=== PATIENT | male | born 1995 | race African-American/Black ===

== ENCOUNTER 2017-06-24 23:33 | Emergency (ER) | payer OTHER ==
--- NOTE | 2017-06-25 00:15 | ED Physician Documentation ---
PD HPI HEAD INJURY - Stated complaint Stated Complaint: L EAR LAC - Chief complaint Chief Complaint: Laceration - History obtained from History obtained from: Patient - History of Present Illness Mechanism of head injury: Laceration Where head injury occurred: Work Timing - onset: Today Location of injury: Left, Other (ear) Associated symptoms: No: LOC, AMS Symptoms worsen with: Palpation Similar symptoms before: Has not had sx before Recently seen: Not recently seen - Additional information Additional information: Patient is a 21 year old male with no significant past medical history who is presenting to the emergency department for ear laceration. Patient was at a trash can and someone opened a lid, cutting his left posterior ear. Patient is up to date on his tetanus and denies any other trauma. Review of Systems Constitutional: denies: Fever Eyes: denies: Loss of vision Ears: reports: Ear pain Nose: reports: Reviewed and negative Throat: reports: Reviewed and negative Cardiac: reports: Reviewed and negative Respiratory: reports: Reviewed and negative GI: denies: Nausea, Vomiting : reports: Reviewed and negative Skin: reports: Abrasion (s), Laceration (s) Neurologic: reports: Head injury. denies: Headache, LOC Immunocompromised: denies: Immunocompromised PD PAST MEDICAL HISTORY - Past Medical History Past Medical History: No - Past Surgical History Past Surgical History: No - Present Medications Home Medications: Ambulatory Orders Medication Instructions Recorded Confirmed No Known Home Medications [No 06/24/17 06/24/17 Known Home Medications] - Allergies Allergies/Adverse Reactions: Allergies Allergy/AdvReac Type Severity Reaction Status Date / Time No Known Drug Allergies Allergy Verified 06/24/17 23:41 - Social History Does the pt smoke?: Yes Smoking Status: Current every day smoker Does the pt drink ETOH?: Yes ETOH Use: Beer, Liquor Does the pt have substance abuse?: No - Immunizations Immunizations are current?: Yes PD ED PE NORMAL - Vitals Vital signs reviewed: Yes - General General: Alert and oriented X 3, No acute distress, Well developed/nourished - Cardiac Cardiac: RRR - Respiratory Respiratory: No respiratory distress - Abdomen Abdomen: Non distended - Extremities Extremities: No deformity - Neuro Neuro: Alert and oriented X 3, No motor deficit, Normal speech Eye Opening: Spontaneous Motor: Obeys Commands Verbal: Oriented GCS Score: 15 PD ED PE EXPANDED - HEENT HEENT: Head injury (2cm laceration/skin flap of left posterior ear) - Derm Derm: Laceration(s) (left posterior ear laceration) Results - Vitals Vitals: Vital Signs - 24 hr 06/24/17 06/25/17 06/25/17 23:35 00:25 00:26 Temperature 36.5 C Heart Rate 82 65 65 Respiratory 14 18 15 Rate Blood Pressure 156/102 H 148/86 H 148/86 H O2 Saturation 96 100 100 Oxygen O2 Source Room air Procedures - Laceration (location) left ear Length in cm: 2 Wound type: Flap Neurovascular status: Sensory intact, Vascular intact Wound Preparation: Chlorhexadine Skin layer closure: Steri strips Other: Patient tolerated well, No complications, Neurovascular intact, Tetanus UTD Complexity: Simple PD MEDICAL DECISION MAKING - ED course Complexity details: reviewed results, re-evaluated patient, considered differential, d/w patient ED course: Patient was seen and examined at bedside. Patient's laceration was repaired as described above. patient required no further work up and was stable for discharge with outpatient follow up. Departure - Departure Disposition: 01 Home, Self Care Clinical Impression: Laceration Condition: Good Instructions: ED Laceration Facial Sutr Tape Follow-Up: Barbara Calvo MD [Primary Care Provider] - As Needed Comments: Your laceration was repaired with steri-strips. They should stay on for about a week or so. If one falls off in the next couple of days you should replace it with a new one. You should keep the area clean and dry. You should avoid scrubbing the area. Monitor for signs of infection (increased redness, swelling or discharge) and follow up with your doctor for any of those. You may return to the emergency department at any time for new, worsening or uncontrollable symptoms. Forms: Activity restrictions
[2017-06-25 00:26] VITALS: BP 148/86
== END 2017-06-25 00:26 | disposition home or self-care (01) ==
LOC: ED 23:33
DX: S01.312A Laceration without foreign body of left ear, initial encounter (principal); W26.8XXA Contact with other sharp object(s), not elsewhere classified, initial encounter; Y99.0 Civilian activity done for income or pay; F17.200 Nicotine dependence, unspecified, uncomplicated
CPT/HCPCS: 99283

== ENCOUNTER 2018-01-16 12:30 | Emergency (ER) | payer OTHER ==
[2018-01-16 12:42] VITALS: BP 142/94
[2018-01-16] MEDS ORDERED: BACITRACIN OINT TOP ONE (13:03)
--- NOTE | 2018-01-16 13:14 | ED Physician Documentation ---
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 This occurred at approximately 730 to 8 PM last night. Tetanus is up-to-date. He is right- handed. He cut his left middle finger. Came in today for evaluation. It is not bleeding. Review of Systems GI: denies: Abdominal Pain, Vomiting Skin: denies: Rash Musculoskeletal: denies: Neck pain, Back pain Neurologic: denies: Focal weakness, Numbness, Headache PD PAST MEDICAL HISTORY - Past Medical History Past Medical History: No - Past Surgical History Past Surgical History: No - Present Medications Home Medications: Ambulatory Orders Medication Instructions Recorded Confirmed No Known Home Medications [No 06/24/17 06/24/17 Known Home Medications] - Allergies Allergies/Adverse Reactions: Allergies Allergy/AdvReac Type Severity Reaction Status Date / Time No Known Drug Allergies Allergy Verified 01/16/18 12:42 - Social History Does the pt smoke?: Yes Smoking Status: Current every day smoker Does the pt drink ETOH?: Yes Does the pt have substance abuse?: No - Immunizations Immunizations are current?: Yes PD ED PE NORMAL - Vitals Vital signs reviewed: Yes - General General: Alert and oriented X 3, No acute distress - HEENT HEENT: Moist mucous membranes - Derm Derm: Warm and dry - Extremities Extremities: Other (L 3rd digit - 1cm curved laceration to the dorsum of the mid phalanx. flap. NVI. no tendon injury. ) - Neuro Neuro: Alert and oriented X 3 Results - Vitals Vitals: Vital Signs - 24 hr 01/16/18 12:40 Temperature 36.4 C L Heart Rate 89 Respiratory 20 Rate Blood Pressure 142/94 H O2 Saturation 95 Oxygen O2 Source Room air PD MEDICAL DECISION MAKING - ED course Complexity details: considered differential, d/w patient, d/w family ED course: Patient is a 22-year-old male who presents to the emergency department with a flap laceration to the dorsal aspect of the mid phalanx of the left third digit. This is been approximately 16 hours since injury, therefore it was irrigated carefully bandaged and bacitracin applied. Placed in a finger splint. We will have him follow-up with his doctor for further care. Will allow this to heal by secondary intention. No tendon injury. Neurovascularly intact. Flexion was tested against resistance as well. Tetanus is up-to-date. Patient counseled regarding signs and symptoms for which I believe and urgent re-evaluation would be necessary. Patient with good understanding of and agreement to plan and is comfortable going home at this time This document was made in part using voice recognition software. While efforts are made to proofread this document, sound alike and grammatical errors may occur. - Sepsis Event Vital Signs: Vital Signs - 24 hr 01/16/18 12:40 Temperature 36.4 C L Heart Rate 89 Respiratory 20 Rate Blood Pressure 142/94 H O2 Saturation 95 Oxygen O2 Source Room air Departure - Departure Disposition: 01 Home, Self Care Clinical Impression: Finger laceration Qualifiers: Encounter type: initial encounter Finger: middle finger Damage to nail status: without damage Foreign body presence: without foreign body Laterality: left Qualified Code(s): S61.213A - Laceration without foreign body of left middle finger without damage to nail, initial encounter Condition: Good Instructions: ED Laceration Hand Follow-Up: Barbara Calvo MD [Primary Care Provider] - Within 3 Days (for wound check) Comments: Keep the splint on for the next week. You can change the dressing and apply antibiotic ointment twice daily. Return if you worsen
== END 2018-01-16 13:30 | disposition home or self-care (01) ==
LOC: ED 12:30
DX: S61.213A Laceration without foreign body of left middle finger without damage to nail, initial encounter (principal); W45.8XXA Other foreign body or object entering through skin, initial encounter; Y93.G2 Activity, grilling and smoking food; F17.200 Nicotine dependence, unspecified, uncomplicated
CPT/HCPCS: 99282; 99283; A9270

== ENCOUNTER 2018-02-20 14:46 | Emergency (ER) | payer OTHER ==
[2018-02-20 15:02] VITALS: BP 140/93
--- NOTE | 2018-02-20 15:32 | ED Physician Documentation ---
History of Present Illness - Stated complaint Stated Complaint: WEAKNESS/SHAKY - Chief complaint Chief Complaint: General - History obtained from History obtained from: Patient - History of Present Illness Timing: Other (This is a previously healthy 22-year-old gentleman who is been doing the ketogenic diet for the last 3 weeks. He is lost about 6 pounds. He has had 2 episodes now where he feels weak and shaky. One was about a week ago he woke up in the middle the night feeling weak and shaky. He took some sugar containing sparkling water thinking his blood sugar might be low. The symptoms persisted that day and then went away. It recurred last night. He made his way down stairs and drank some orange juice and then vomited and briefly had a nosebleed. He still feels generally weak and shaky, he denies chest pain, trouble breathing, persistent nausea, abdominal pain or diarrhea.) - Additonal information Additional information: He did drink a fair amount last night, he does not recall if he drank the night of the previous symptoms. Review of Systems Constitutional: reports: Fatigue. denies: Fever, Chills Throat: denies: Dental pain / toothache, Sore throat Cardiac: denies: Chest pain / pressure, Palpitations Respiratory: denies: Dyspnea, Cough GI: denies: Abdominal Pain, Diarrhea PD PAST MEDICAL HISTORY - Past Medical History Past Medical History: No - Past Surgical History Past Surgical History: No - Present Medications Home Medications: Ambulatory Orders Medication Instructions Recorded Confirmed No Known Home Medications 06/24/17 06/24/17 - Allergies Allergies/Adverse Reactions: Allergies Allergy/AdvReac Type Severity Reaction Status Date / Time No Known Drug Allergies Allergy Verified 01/16/18 12:42 - Social History Does the pt smoke?: Yes Smoking Status: Current every day smoker Does the pt drink ETOH?: Yes Does the pt have substance abuse?: No - Immunizations Immunizations are current?: Yes PD ED PE NORMAL - Vitals Vital signs reviewed: Yes - General General: Alert and oriented X 3, No acute distress, Other (No tremor) - HEENT HEENT: PERRL, EOMI - Neck Neck: Supple, no meningeal sign, No bony TTP - Cardiac Cardiac: RRR, No murmur - Respiratory Respiratory: No respiratory distress, Clear bilaterally - Abdomen Abdomen: Normal bowel sounds, Soft, Non tender - Derm Derm: No rash - Neuro Neuro: Alert and oriented X 3, 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 Eye Opening: Spontaneous Motor: Obeys Commands Verbal: Oriented GCS Score: 15 - Psych Psych: Normal mood, Normal affect Results - Vitals Vitals: Vital Signs - 24 hr 02/20/18 14:58 Temperature 36.7 C Heart Rate 98 Respiratory 18 Rate Blood Pressure 140/93 H O2 Saturation 95 Oxygen O2 Source Room air - EKG (time done) 1507 Rate: Rate (enter#) (97) Rhythm: NSR [place]: Normal Intervals: Normal MT QRS: Normal Ischemia: Normal ST segments Computer interpretation: Agree with computer - Labs Labs: Laboratory Tests 02/20/18 02/20/18 02/20/18 15:01 15:40 15:40 WBC 5.8 RBC 4.53 L Hgb 14.8 Hct 43.2 MCV 95.4 H MCH 32.7 H MCHC 34.3 RDW 13.7 Plt Count 234 MPV 9.0 Neut # (Auto) 4.2 Lymph # (Auto) 1.0 L [place] # (Auto) 0.5 Eos # (Auto) 0.0 Baso # (Auto) 0.0 Absolute Nucleated RBC 0.01 Nucleated RBC % 0.1 Sodium 136 Potassium 4.5 Chloride 96 L Carbon Dioxide 25 Anion Gap 15.0 H BUN 19 Creatinine 1.0 Estimated GFR (MDRD) 111 Glucose 145 H POC Whole Bld Glucose 138 H Calcium 9.9 Total Bilirubin 0.8 AST 57 H ALT 67 H Alkaline Phosphatase 46 Total Protein 8.3 H Albumin 4.8 Globulin 3.5 Albumin/Globulin Ratio 1.4 Lipase 29 PD MEDICAL DECISION MAKING - ED course ED course: 22-year-old gentleman with nonspecific symptoms likely related to ketogenic diet. We will do some screening labs, but pretest probability is low. - Sepsis Event Vital Signs: Vital Signs - 24 hr 02/20/18 14:58 Temperature 36.7 C Heart Rate 98 Respiratory 18 Rate Blood Pressure 140/93 H O2 Saturation 95 Oxygen O2 Source Room air Departure - Departure Disposition: 01 Home, Self Care Clinical Impression: Dizziness, Shakiness, Ketogenic diet Condition: Good Record reviewed to determine appropriate education?: Yes Instructions: ED Dizziness [facility] Comments: Lab work demonstrates very mild elevation of your liver enzymes, decrease alcohol use. [place] Return for new or worsening symptoms.
[2018-02-20 16:04] LABS: BASOPHILS % (AUTO) 0.4 %; EOSINOPHILS % (AUTO) 0.6 %; HGB - HEMOGLOBIN 14.8 g/dL (14.0-18.0); LYMPHOCYTES % (AUTO) 17.5 %; MEAN CORPUSCULAR HEMOGLOBIN 32.7 pg (27.0-31.0); MEAN CORPUSCULAR HGB CONC 34.3 g/dL (32.0-36.0); MEAN CORPUSCULAR VOLUME 95.4 fL (80.0-94.0); MONOCYTES # (AUTO) 0.5 10^3/uL (0.0-1.0); MONOCYTES % (AUTO) 8.9 %; NEUTROPHILS # (AUTO) 4.2 10^3/uL (1.5-6.6); NEUTROPHILS % (AUTO) 72.6 %; PLT - PLATELET COUNT 234 10^3/uL (130-450); RED BLOOD COUNT 4.53 10^6/uL (4.70-6.10); RED CELL DISTRIBUTION WIDTH 13.7 % (12.0-15.0); WHITE BLOOD COUNT 5.8 x10^3/uL (4.8-10.8)
[2018-02-20 16:16] LABS: ALBUMIN 4.8 g/dL (3.2-5.5); ALBUMIN/GLOBULIN RATIO 1.4 (1.0-2.2); BILIRUBIN,TOTAL 0.8 mg/dL (0.2-1.0); CALCIUM 9.9 mg/dL (8.5-10.3); TOTAL PROTEIN 8.3 g/dL (6.7-8.2)
== END 2018-02-20 16:29 | disposition home or self-care (01) ==
LOC: ED 14:46
DX: R42 Dizziness and giddiness (principal); R25.8 Other abnormal involuntary movements; F17.200 Nicotine dependence, unspecified, uncomplicated
CPT/HCPCS: 36415; 80053; 83690; 85025; 93005; 99282; 99283

== ENCOUNTER 2018-10-02 15:13 | Emergency (ER) | payer OTHER ==
[2018-10-02 15:31] VITALS: BP 165/103
--- NOTE | 2018-10-02 15:55 | ED Physician Documentation ---
History of Present Illness - Stated complaint Stated Complaint: WEAKNESS - Chief complaint Chief Complaint: General - History obtained from History obtained from: Patient, Family - History of Present Illness Timing: Other (Otherwise healthy 23-year-old gentleman who presents with weakness and shakiness for the last few days. I saw him in January of last year for similar symptoms and seems like the inciting factors are the same. At that time he was on the keto diet and was drinking sometimes excessively at night. He is off the keto diet until about a week or 2 ago. The symptoms came up on . He feels just generally weak and like his muscles are sore all over. He did drink heavily the last 2 nights.) Review of Systems Constitutional: reports: Fatigue. denies: Fever, Chills Nose: denies: Rhinorrhea / runny nose, Congestion Cardiac: denies: Chest pain / pressure, Palpitations Respiratory: denies: Dyspnea, Cough GI: denies: Abdominal Pain, Nausea PD PAST MEDICAL HISTORY - Past Surgical History Past Surgical History: No - Present Medications Home Medications: Ambulatory Orders Medication Instructions Recorded Confirmed No Known Home Medications 06/24/17 06/24/17 - Allergies Allergies/Adverse Reactions: Allergies Allergy/AdvReac Type Severity Reaction Status Date / Time No Known Drug Allergies Allergy Verified 10/02/18 15:31 - Social History Does the pt smoke?: Yes Smoking Status: Current every day smoker Does the pt drink ETOH?: Yes Does the pt have substance abuse?: No - Immunizations Immunizations are current?: Yes PD ED PE NORMAL - Vitals Vital signs reviewed: Yes - General General: Alert and oriented X 3, No acute distress - HEENT HEENT: PERRL, EOMI, Pharynx benign - Neck Neck: Supple, no meningeal sign, No bony TTP - Cardiac Cardiac: RRR, No murmur - Respiratory Respiratory: No respiratory distress, Clear bilaterally - Abdomen Abdomen: Non tender - Derm Derm: Normal color, Warm and dry - Extremities Extremities: No deformity, No tenderness to palpate - Neuro Neuro: Alert and oriented X 3, Normal speech Eye Opening: Spontaneous Motor: Obeys Commands Verbal: Oriented GCS Score: 15 Results - Vitals Vitals: Vital Signs - 24 hr 10/02/18 15:26 Temperature 36.6 C Heart Rate 93 Respiratory 16 Rate Blood Pressure 165/103 H O2 Saturation 98 Oxygen O2 Source Room air - Labs Labs: Laboratory Tests 10/02/18 10/02/18 10/02/18 16:00 16:00 16:00 WBC 7.4 RBC 4.73 Hgb 15.5 Hct 44.6 MCV 94.3 H MCH 32.8 H MCHC 34.8 RDW 13.2 Plt Count 196 MPV 8.6 Neut # (Auto) 5.3 Lymph # (Auto) 1.4 L [place] # (Auto) 0.5 Eos # (Auto) 0.1 Baso # (Auto) 0.0 Absolute Nucleated RBC 0.00 Nucleated RBC % 0.0 Sodium 131 L Potassium 4.0 Chloride 93 L Carbon Dioxide 22 Anion Gap 16.0 H BUN 13 Creatinine 0.9 Estimated GFR (MDRD) 125 Glucose 88 Calcium 9.4 Total Bilirubin 1.1 H AST 57 H ALT 50 Alkaline Phosphatase 54 Ammonia 23.5 Total Creatine Kinase 345 H Total Protein 8.0 Albumin 4.6 Globulin 3.4 Albumin/Globulin Ratio 1.4 Lipase 27 Serum Ketones NEGATIVE PD MEDICAL DECISION MAKING - ED course ED course: 23-year-old gentleman is presents with nonspecific symptoms in the setting of a ketogenic diet, his exam is unremarkable and there are no significant lab abnormalities. Departure - Departure Disposition: 01 Home, Self Care Clinical Impression: Ketogenic diet, Shakiness, Dizziness Condition: Good Record reviewed to determine appropriate education?: Yes Instructions: ED Dizziness [facility] Comments: Call your doctor to arrange a follow-up appointment, make the next available appointment. In the interim, return anytime if worse or if new symptoms develop. Your blood pressure was elevated today on check into the emergency department. This does not mean that you have hypertension, it is a common phenomenon to come to the emergency department and have elevated blood pressure. I recommend that you see your primary care physician within the week to have it rechecked when you are feeling better.
[2018-10-02 16:06] LABS: BASOPHILS % (AUTO) 0.7 %; EOSINOPHILS # (AUTO) 0.1 10^3/uL (0.0-0.7); EOSINOPHILS % (AUTO) 1.8 %; HGB - HEMOGLOBIN 15.5 g/dL (14.0-18.0); LYMPHOCYTES # (AUTO) 1.4 10^3/uL (1.5-3.5); LYMPHOCYTES % (AUTO) 19.3 %; MEAN CORPUSCULAR HEMOGLOBIN 32.8 pg (27.0-31.0); MEAN CORPUSCULAR HGB CONC 34.8 g/dL (32.0-36.0); MEAN CORPUSCULAR VOLUME 94.3 fL (80.0-94.0); MEAN PLATELET VOLUME 8.6 fL (7.4-11.4); MONOCYTES # (AUTO) 0.5 10^3/uL (0.0-1.0); NEUTROPHILS # (AUTO) 5.3 10^3/uL (1.5-6.6); NEUTROPHILS % (AUTO) 71.2 %; PLT - PLATELET COUNT 196 10^3/uL (130-450); RED BLOOD COUNT 4.73 10^6/uL (4.70-6.10); RED CELL DISTRIBUTION WIDTH 13.2 % (12.0-15.0); WHITE BLOOD COUNT 7.4 x10^3/uL (4.8-10.8)
[2018-10-02 16:14] LABS: KETONES, SERUM (ACETEST) NEGATIVE (NEGATIVE)
[2018-10-02 16:20] LABS: ALBUMIN 4.6 g/dL (3.2-5.5); ALBUMIN/GLOBULIN RATIO 1.4 (1.0-2.2); ALKALINE PHOSPHATASE 54 IU/L (42-121); ALT ALANINE AMINOTRANSFERASE 50 IU/L (10-60); AST ASPARTATE AMINOTRANSFERASE 57 IU/L (10-42); BILIRUBIN,TOTAL 1.1 mg/dL (0.2-1.0); BUN - BLOOD UREA NITROGEN 13 mg/dL (6-20); CALCIUM 9.4 mg/dL (8.5-10.3); CARBON DIOXIDE - CO2 22 mmol/L (21-32); CHLORIDE 93 mmol/L (101-111); CK- CREATINE KINASE 345 IU/L (22-269); CREATININE 0.9 mg/dL (0.6-1.2); GFR - MDRD 125 (>89); GLUCOSE 88 mg/dL (70-100); LIPASE 27 U/L (22-51); SODIUM 131 mmol/L (135-145)
== END 2018-10-02 16:34 | disposition home or self-care (01) ==
LOC: ED 15:13
DX: R25.8 Other abnormal involuntary movements (principal); R42 Dizziness and giddiness; R53.1 Weakness; M79.18 Myalgia, other site; R53.83 Other fatigue; R03.0 Elevated blood-pressure reading, without diagnosis of hypertension; F17.200 Nicotine dependence, unspecified, uncomplicated; Z78.9 Other specified health status; Z72.89 Other problems related to lifestyle
CPT/HCPCS: 36415; 80053; 82009; 82140; 82550; 83690; 85025; 99282; 99283

== ENCOUNTER 2021-08-09 02:49 | Outpatient (CLI) | payer OTHER | END 2021-08-09 02:50 | disposition EMS.NT | LOC: EMS 02:49 | DX: Z03.89 Encounter for observation for other suspected diseases and conditions ruled out (principal) ==